=== PATIENT | male | born 2000 | race Caucasian/White ===

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

== ENCOUNTER 2019-07-14 16:08 | Emergency (ER) | payer BC ==
[2019-07-14 16:23] VITALS: BP 121/80; PULSE 85; RESP 16; TEMP 97.8
--- NOTE | 2019-07-14 17:14 | XR ---
EXAMINATION TYPE: XR elbow complete RT DATE OF EXAM: 07/14/2019 COMPARISON: NONE HISTORY: Elbow pain TECHNIQUE: 3 views FINDINGS: There is no sign of fracture nor dislocation. Joint spaces are normal. IMPRESSION: Negative right elbow exam.
--- NOTE | 2019-07-14 17:17 | XR ---
EXAMINATION TYPE: XR shoulder complete RT DATE OF EXAM: 07/14/2019 COMPARISON: NONE HISTORY: Shoulder pain TECHNIQUE: 3 views FINDINGS: I see no fracture nor dislocation. Glenohumeral joint is intact. IMPRESSION: Negative right shoulder exam.
--- NOTE | 2019-07-14 17:28 | ED ---
Upper Extremity HPI - General Chief Complaint: Extremity Injury, Upper Stated Complaint: Should injury Time Seen by Provider: 07/14/19 16:32 Source: patient, RN notes reviewed, old records reviewed Mode of arrival: ambulatory Limitations: no limitations - History of Present Illness Initial Comments: Asians 19-year-old male presents today for evaluation with chief complaint of right shoulder and right elbow pain. Patient reports that he was lifting a trash bag and felt a pop with an initial increase had a history of bicipital tendinitis in the past on the right arm. Patient states he does have full range of motion of the elbow and upper arm. He does report occasional sharp shooting pain with pulling sensation. He saw Dr. Vazquez. Does not see an orthopedic at this for this time. Has had Tylenol does have improvement of his pain. - Related Data Previous Rx's Medication Instructions Recorded Ibuprofen [Motrin] 600 mg PO Q8HR PRN #20 tab 07/14/19 Allergies Allergy/AdvReac Type Severity Reaction Status Date / Time No Known Allergies Allergy Verified 07/14/19 16:55 Review of Systems ROS Statement: Those systems with pertinent positive or pertinent negative responses have been documented in the HPI. ROS Other: All systems not noted in ROS Statement are negative. Past Medical History Past Medical History: No Reported History History of Any Multi-Drug Resistant Organisms: None Reported Past Surgical History: Adenoidectomy, Tonsillectomy Past Psychological History: No Psychological Hx Reported Past Alcohol Use History: None Reported, Occasional Past Drug Use History: Marijuana General Exam - General Exam Comments Initial Comments: Well-appearing 19-year-old male. No distress. Limitations: no limitations General appearance: alert, in no apparent distress Head exam: Present: atraumatic, normocephalic, normal inspection Eye exam: Present: normal appearance, PERRL, EOMI. Absent: scleral icterus, conjunctival injection, periorbital swelling ENT exam: Present: normal exam, mucous membranes moist Neck exam: Present: normal inspection. Absent: tenderness, meningismus, lymphadenopathy Respiratory exam: Present: normal lung sounds bilaterally. Absent: respiratory distress, wheezes, rales, rhonchi, stridor Cardiovascular Exam: Present: regular rate, normal rhythm, normal heart sounds. Absent: systolic murmur, diastolic murmur, rubs, gallop, clicks GI/Abdominal exam: Present: soft, normal bowel sounds. Absent: distended, tenderness, guarding, rebound, rigid Extremities exam: Present: normal inspection, full ROM, normal capillary refill. Absent: tenderness, pedal edema, joint swelling, calf tenderness Right Shoulder Exam: Present: normal inspection, full ROM, other (Porter has tenderness over bicep tendon) Upper Arm exam: Present: normal inspection, full ROM, other (Patient has full range of motion of the upper arm and elbow. No sign of complete biceps tendon tear the tendon is palpable.) Elbow exam: Present: normal inspection, full ROM Forearm Wrist exam: Present: normal inspection, full ROM Back exam: Present: normal inspection Neurological exam: Present: alert, oriented X3, CN II-XII intact Course Vital Signs 07/14/19 16:20 Temperature 97.8 F Pulse Rate 85 Respiratory 16 Rate Blood Pressure 121/80 O2 Sat by Pulse 100 Oximetry Medical Decision Making - Medical Decision Making 19-year-old male presents today for complaints of a pulling snapping sensation in his right arm and lifting garbage. Patient has evidence of some biceps tendinitis with positive pain with flexion of the arm at the origin of the bicep at this time. Patient was advised to think temperature medicine. Shoulder and elbow x-ray are negative. All questions were answered return parameters were discussed. - Radiology Data Radiology results: report reviewed Negative right elbow exam. He does Right shoulder exam. Disposition Clinical Impression: Biceps tendinitis on right Disposition: HOME SELF-CARE Condition: Good Instructions (If sedation given, give patient instructions): Tendinitis (ED) Additional Instructions: Patient advised to wear the sling. Motrin and Tylenol for pain. Follow-up with orthopedics. Return to the emergency department if any alarming signs or symptoms occur. Prescriptions: Ibuprofen [Motrin] 600 mg PO Q8HR PRN #20 tab PRN Reason: Pain Is patient prescribed a controlled substance at d/c from ED?: No Referrals: Rogerio Gao MD [Primary Care Provider] - 1-2 days Nasim Burgess DO [Doctor of Osteopathic Medicine] - 1-2 days Time of Disposition: 17:28
== END 2019-07-14 17:49 | disposition home or self-care (01) ==
LOC: EC 16:08
DX: M75.21 Bicipital tendinitis, right shoulder (principal)
CPT/HCPCS: 99284

== ENCOUNTER 2020-04-03 21:31 | Emergency (ER) | payer BC ==
[2020-04-03 21:39] VITALS: RESP 20
--- NOTE | 2020-04-03 22:00 | ED ---
General Adult HPI - General Chief complaint: Chest Pain Stated complaint: Chest Pain Time Seen by Provider: 04/03/20 21:40 Source: patient Mode of arrival: ambulatory Limitations: no limitations - History of Present Illness Initial comments: 20-year-old male patient presents to the emergency department today for evaluation of left upper chest pain. Patient states that the pain started today after working a shift while wearing a mask. Patient states that he had similar episode about 16 days ago after her shift while wearing a mask. States he started to have sharp stabbing pains of left upper chest with a general dull achy pain at all times. States the pain worsens when taking a deep breath. She denies any radiation of the pain through to his back. Denies any cough or congestion. Denies shortness of breath. Denies fever or chills. Patient states he was seen and evaluated at urgent care and by his primary care physician and was diagnosed with pleurisy. States he has been taking ibuprofen intermittently. Patient denies any recent rash, cough, abdominal pain, nausea, vomiting, diarrhea, constipation, back pain, numbness, tingling, dizziness, weakness, hematuria, dysuria, urinary urgency, urinary frequency, headache, visual changes, or any other complaints. - Related Data Home Medications Medication Instructions Recorded Confirmed Ascorbic Acid [Vitamin C] 500 mg PO DAILY 04/03/20 04/03/20 Ibuprofen [Motrin Ib] 600 mg PO Q8H PRN 04/03/20 04/03/20 Allergies Allergy/AdvReac Type Severity Reaction Status Date / Time No Known Allergies Allergy Verified 04/03/20 22:22 Review of Systems ROS Statement: Those systems with pertinent positive or pertinent negative responses have been documented in the HPI. ROS Other: All systems not noted in ROS Statement are negative. Past Medical History Past Medical History: No Reported History History of Any Multi-Drug Resistant Organisms: None Reported Past Surgical History: Adenoidectomy, Tonsillectomy Past Psychological History: No Psychological Hx Reported Past Alcohol Use History: None Reported, Occasional Past Drug Use History: Marijuana General Exam Limitations: no limitations General appearance: alert, in no apparent distress, other (Physical well- developed, well-nourished adult male patient in no acute distress. Vital signs upon presentation are temperature 98.6F, pulse 100, respirations 20, blood pressure 143/82, pulse ox 100% on room air.) Eye exam: Present: normal appearance, PERRL, EOMI. Absent: scleral icterus, conjunctival injection, periorbital swelling ENT exam: Present: normal exam, normal oropharynx, mucous membranes moist Respiratory exam: Present: normal lung sounds bilaterally. Absent: respiratory distress, wheezes, rales, rhonchi, stridor Cardiovascular Exam: Present: normal rhythm, tachycardia, normal heart sounds. Absent: systolic murmur, diastolic murmur, rubs, gallop, clicks GI/Abdominal exam: Present: soft, normal bowel sounds. Absent: distended, tenderness, guarding, rebound, rigid Neurological exam: Present: alert, oriented X3, CN II-XII intact Psychiatric exam: Present: normal affect, normal mood Skin exam: Present: warm, dry, intact, normal color. Absent: rash Course Vital Signs 04/03/20 04/03/20 04/03/20 21:36 21:53 22:04 Temperature 98.6 F Pulse Rate 100 141 H 112 H Respiratory 20 Rate Blood Pressure 143/82 O2 Sat by Pulse 100 Oximetry 04/03/20 04/03/20 04/03/20 22:30 23:00 23:30 Temperature Pulse Rate 151 H 110 H 99 Respiratory Rate Blood Pressure 133/71 110/54 O2 Sat by Pulse 100 96 Oximetry 04/04/20 00:10 Temperature 98.3 F Pulse Rate Respiratory Rate Blood Pressure O2 Sat by Pulse Oximetry EKG Findings - EKG Comments: EKG Findings:: EKG obtained at 2148 shows sinus tachycardia, ventricular rate is 124, MI interval 162, QRS duration 84, QT 306, QTc 439. No evidence of ST elevation or depression. Second EKG obtained at 2230 shows sinus tachycardia with a ventricular rate of 151, MI interval 142, QRS duration 84, QT 364, QTC 41 8. No evidence of ST elevation or depression. Medical Decision Making - Medical Decision Making 20-year-old male patient presents to the emergency department today for evaluation of left upper chest pain. Physical examination did recur equal lung sounds. Patient was tachycardic upon arrival. Patient initially did not want labs performed however didn't eventually agree. Chest x-ray showed no acute cardiopulmonary process. Labs were reviewed and were unremarkable. D-dimer negative. Troponin negative. After being told about labs and IV patient's heart rate did increase into the 170s. We repeated EKG at that time which still showed sinus tachycardia. Patient was very anxious at this time. Patient was given Ativan and IV fluids. Patient's heart rate did decrease down into the 90s. He is feeling better upon reevaluation. Patient be discharged home to follow-up with his primary care physician. He is urged to discuss heart mo nitoring. Is instructed to follow-up with his primary care physician for recheck in 1-2 days. Return parameters were discussed in detail. He verbalizes understanding and agrees with this plan - Lab Data Result diagrams: 04/03/20 22:39 04/03/20 22:39 Lab Results 04/03/20 04/03/20 04/03/20 Range/Units 22:39 22:39 22:39 WBC 14.5 H (3.8-10.6) k/uL RBC 4.82 (4.30-5.90) m/uL Hgb 13.7 (13.0-17.5) gm/dL Hct 41.1 (39.0-53.0) % MCV 85.3 (80.0-100.0) fL MCH 28.4 (25.0-35.0) pg MCHC 33.2 (31.0-37.0) g/dL RDW 12.9 (11.5-15.5) % Plt Count 268 (150-450) k/uL Neutrophils % 60 % Lymphocytes % 31 % Monocytes % 6 % Eosinophils % 2 % Basophils % 1 % Neutrophils # 8.7 H (1.3-7.7) k/uL Lymphocytes # 4.4 (1.0-4.8) k/uL Monocytes # 0.8 (0-1.0) k/uL Eosinophils # 0.2 (0-0.7) k/uL Basophils # 0.1 (0-0.2) k/uL D-Dimer <0.17 (<0.60) mg/L FEU Sodium 139 (137-145) mmol/L Potassium 3.4 L (3.5-5.1) mmol/L Chloride 104 (98-107) mmol/L Carbon Dioxide 22 (22-30) mmol/L Anion Gap 13 mmol/L BUN 15 (9-20) mg/dL Creatinine 0.69 (0.66-1.25) mg/dL Est GFR (CKD-EPI)AfAm >90 (>60 ml/min/1.73 sqM) Est GFR (CKD-EPI)NonAf >90 (>60 ml/min/1.73 sqM) Glucose 135 H (74-99) mg/dL Calcium 9.8 (8.4-10.2) mg/dL Magnesium 2.2 (1.6-2.3) mg/dL Total Bilirubin 0.4 (0.2-1.3) mg/dL AST 23 (17-59) U/L ALT 19 (4-49) U/L Alkaline Phosphatase 85 (38-126) U/L Troponin I (0.000-0.034) ng/mL Total Protein 6.8 (6.3-8.2) g/dL Albumin 4.5 (3.5-5.0) g/dL 04/03/20 Range/Units 22:39 WBC (3.8-10.6) k/uL RBC (4.30-5.90) m/uL Hgb (13.0-17.5) gm/dL Hct (39.0-53.0) % MCV (80.0-100.0) fL MCH (25.0-35.0) pg MCHC (31.0-37.0) g/dL RDW (11.5-15.5) % Plt Count (150-450) k/uL Neutrophils % % Lymphocytes % % Monocytes % % Eosinophils % % Basophils % % Neutrophils # (1.3-7.7) k/uL Lymphocytes # (1.0-4.8) k/uL Monocytes # (0-1.0) k/uL Eosinophils # (0-0.7) k/uL Basophils # (0-0.2) k/uL D-Dimer (<0.60) mg/L FEU Sodium (137-145) mmol/L Potassium (3.5-5.1) mmol/L Chloride (98-107) mmol/L Carbon Dioxide (22-30) mmol/L Anion Gap mmol/L BUN (9-20) mg/dL Creatinine (0.66-1.25) mg/dL Est GFR (CKD-EPI)AfAm (>60 ml/min/1.73 sqM) Est GFR (CKD-EPI)NonAf (>60 ml/min/1.73 sqM) Glucose (74-99) mg/dL Calcium (8.4-10.2) mg/dL Magnesium (1.6-2.3) mg/dL Total Bilirubin (0.2-1.3) mg/dL AST (17-59) U/L ALT (4-49) U/L Alkaline Phosphatase (38-126) U/L Troponin I <0.012 (0.000-0.034) ng/mL Total Protein (6.3-8.2) g/dL Albumin (3.5-5.0) g/dL - Radiology Data Radiology results: report reviewed, image reviewed Two-view x-ray of the chest is obtained. Report was reviewed in its entirety. Impression by Dr. Torres shows normal chest. Disposition Clinical Impression: Chest pain, Anxiety Disposition: HOME SELF-CARE Condition: Good Instructions (If sedation given, give patient instructions): Chest Pain (ED), Anxiety (ED) Additional Instructions: Increase fluids. Rest. Follow-up with your primary care physician for recheck in 1-2 days. Follow-up with outpatient mental health services to discuss your anxiety. Return to the emergency department immediately for any new, worsening, or concerning symptoms. Is patient prescribed a controlled substance at d/c from ED?: No Referrals: Rogerio Gao MD [Primary Care Provider] - 1-2 days Time of Disposition: 23:46
--- NOTE | 2020-04-03 22:12 | XR ---
EXAMINATION TYPE: XR chest 2V DATE OF EXAM: 04/03/2020 COMPARISON: NONE HISTORY: Chest pain TECHNIQUE: FINDINGS: Heart and mediastinum are normal. Lungs are clear. Diaphragm is normal. Bony thorax appears normal. IMPRESSION: Normal chest.
[2020-04-03] MEDS ORDERED: SODIUM CHLORIDE 0.9% 1,000 ML IV ONE (22:26)
[2020-04-03] MEDS ORDERED: LORazepam 2 MG/ML INJ IV STA (22:34)
[2020-04-03 22:53] LABS: Basophils # (A) 0.1 k/uL (0-0.2); Basophils % (A) 1 %; Eosinophils # (A) 0.2 k/uL (0-0.7); Eosinophils % (A) 2 %; HCT 41.1 % (39.0-53.0); HGB 13.7 gm/dL (13.0-17.5); Lymphocytes # (A) 4.4 k/uL (1.0-4.8); Lymphocytes % (A) 31 %; MCH 28.4 pg (25.0-35.0); MCHC 33.2 g/dL (31.0-37.0); MCV 85.3 fL (80.0-100.0); Mean Platelet Volume 8.7; Monocytes # (A) 0.8 k/uL (0-1.0); Monocytes % (A) 6 %; Neutrophils # (A) 8.7 k/uL (1.3-7.7); Neutrophils % (A) 60 %; Platelet Count 268 k/uL (150-450); RBC 4.82 m/uL (4.30-5.90); RDW 12.9 % (11.5-15.5); WBC 14.5 k/uL (3.8-10.6)
[2020-04-03 23:02] LABS: ALT 19 U/L (4-49); AST 23 U/L (17-59); African American GFR (CKD) >90 (>60 ml/min/1.73 sqM); Albumin 4.5 g/dL (3.5-5.0); Alkaline Phosphatase 85 U/L (38-126); Anion Gap 13 mmol/L; Blood Urea Nitrogen 15 mg/dL (9-20); Calcium 9.8 mg/dL (8.4-10.2); Carbon Dioxide 22 mmol/L (22-30); Chloride 104 mmol/L (98-107); Glucose 135 mg/dL (74-99); Magnesium 2.2 mg/dL (1.6-2.3); Non-African American GFR(CKD) >90 (>60 ml/min/1.73 sqM); Potassium 3.4 mmol/L (3.5-5.1); Sodium 139 mmol/L (137-145); Total Bilirubin 0.4 mg/dL (0.2-1.3); Total Protein 6.8 g/dL (6.3-8.2)
[2020-04-03 23:38] VITALS: BP 110/54; PULSE 99
[2020-04-03] MEDS ORDERED: POTASSIUM CHLORIDE ER 20 MEQ TAB.ER PO STA (23:53)
[2020-04-04 00:18] VITALS: TEMP 98.3
== END 2020-04-04 00:18 | disposition home or self-care (01) ==
LOC: EC 21:31
DX: F41.9 Anxiety disorder, unspecified (principal); R00.0 Tachycardia, unspecified
CPT/HCPCS: 36415; 93005; 85379; 80053; 83735; 84484; 85025; 71046; 99285; 96374; 96361; J2060